=== PATIENT | female | born 1995 | race Caucasian/White ===

== ENCOUNTER → 2017-04-22 | Outpatient (CLI) | payer BC, OTHER ==
[~2017-04-22] VITALS: Ht 177.8 cm; Wt 73.2 kg
[~2017-04-22] MED LIST: AUGMENTIN 875875 MG PO; COLACE100 MG PO; ENSKYCE1 EACH PO; FLAGYL500 MG PO; HYDROCODONE-AP1 EAC6 PO; MEDROLDOSEPACK PO; MOBIC15 MG PO; NAPROSYN500 M1 PO; NOHOMEMEDICATIONS; SENNA S TABLET1 EACH PO
--- NOTE | ~2017-04-22 | HPC ---
[facility] [place] [address] PAIN MANAGEMENT CONSULTATION Name: MIGUELITO LEVINE Room #: REG JESSE ChavezLaureenArjun.#: [id number] Admission: 04/22/17 Attend Phys: Argenis Liu MD Discharge: Date of : 89 Report #: [id number] THIS REPORT FOR: //name// CC: Haylee Liu DATE OF SERVICE: 04/22/2017 PRIMARY CARE PHYSICIAN: Haylee Lombardi M.D. CHIEF COMPLAINT: Back and left leg pain. HISTORY OF PRESENT ILLNESS: The patient is a 21-year-old female who has been referred to the pain clinic for evaluation of back and leg pain. She has had pain and discomfort since 09/2016. She has noticed pain in the lower portion of her back and has experienced this multiple times during the course of day. Notes that the pain is worse when she gets in certain positions. She also on occasion has tingling, which radiates down into her left leg involving her toes when the pain is present. She does sometimes appreciate some weakness involving her left leg. She has undergone physical therapy for approximately 2 weeks in December. She did not notice that this provided any fci health. She states that her pain continued to be problematic in spite of that treatment. She was seen by an orthopedic nurse. After x-ray, she was told that a course of ibuprofen could be beneficial. She does not take any pain medications on a long-term basis at this juncture. Her back continues to be problematic daily. The most problematic time is when the pain is intense and radiates down into her left leg. She has tried heat, but has not noticed a significant improvement with this modality. Notes that the pain radiates down the middle of her back down into her left hip into her leg, particularly exacerbated by bending. Denies any bowel or bladder dysfunction. Describes it as brief, sharp and tender. Pain can average of 5 during the course of the day and 8 at its greatest level. ALLERGIES: TESOGEN. CURRENT MEDICATION REGIMEN: No current home medications, has used ProAir 2 puffs p.r.n. PAST MEDICAL HISTORY: Asthma. PAST SURGICAL HISTORY: Appendectomy in 08/2014. FAMILY HISTORY: Mother alive, hypertension, obesity and use of tobacco. Maternal grandmother alive with diabetes. Dad alive and healthy. She is an only child. Hypertension in her mother. [facility] [address] [place] [address] PAIN MANAGEMENT CONSULTATION Name: MIGUELITO LEVINE Room #: REG JESSE Luis Fernando#: [id number] Admission: 04/22/17 Attend Phys: Argenis Liu MD Discharge: Date of : 89 Report #: [id number] SOCIAL HISTORY: She worked at [employer]. She has never smoked. Twelfth grade education, graduated in 2013. Denies use of alcohol. Denies use of drugs. Denies being sexually active. Considering going to [employer] for an advanced degree. REVIEW OF SYSTEMS: Questionnaire generally good health. A 14-point review of systems all negative. PHYSICAL EXAMINATION: GENERAL: The patient is a well-developed, well-nourished white female. Appearance, appears her stated age, alert and oriented x 3. Affect is appropriate. HEENT: Normocephalic, atraumatic. Ear/hearing within normal limits. Eyes: Extraocular eye muscles intact. Sclerae is nonicteric. Nose is without discharge. Buccal membranes are moist, good dentition. NECK: Without adenopathy or bruits. LUNGS: Clear to auscultation. HEART: Regular rate and rhythm, normal S1, S2. ABDOMEN: Nontender. Bowel sounds present. MUSCULOSKELETAL: Normal alignment. No scoliosis, kyphosis or lordosis. The patient has a normal gait. Deep tendon reflexes are +2 in the upper biceps tendons trace at the brachioradialis and +1 for triceps. Sensation to cold pinprick and light touch are within normal limits. The patient has some soreness in the low back area in the L4-L5/L5-S1 paraspinous areas as well as some pain in the left greater trochanteric area. Deep tendon reflexes are +2 at the knees bilaterally and at the ankles. Generally, neurologic exam is within normal limits on the right lower extremity. The patient does have some slight decreased sensation with weakness in the left leg. LABORATORY DATA: 1. MRI of the lumbar spine dated 04/04/2017 reveals vertebral heights are maintained. No evidence of acute compression or malalignment. Disc Decussation and height reduction at L3-L4 with prominent Schmorl's in the superior endplate of L4 and reactive changes. Mild bilateral facet joint hypertrophy and ligamentum flavum thickening. Normal conus medullaris terminates at T12/L1. 2. L3-L4, mild broad-based disk bulge without significant acquired stenosis. 3. L3-L4 degenerative disk disease and Schmorl's node. PAIN CLINIC ASSESSMENT: 1. History of osteoarthritis, not applicable. History of rheumatoid arthritis, not applicable. 2. Height 5 feet 10 inches, weight 161 pounds, BMI is 23. 3. VITAL SIGNS: Blood pressure 101/78, pulse 78, respiratory rate 14 and room air saturation is 100. 4. Pain intensity of 2. 5. Fall risk, dizziness needs no help standing or walking. The patient has not [place] [id number] PAIN MANAGEMENT CONSULTATION Name: MIGUELITO LEVINE Room #: REG [facility].#: [id number] Admission: 04/22/17 Attend Phys: Argenis Liu MD Discharge: Date of : 89 Report #: [id number] fallen in the last 3 months. 6. The patient not on blood thinners. 7. History of hypertension, negative. History of opioid therapy greater than 6 weeks, negative. Risk assessment tool low risk with 0/3. 8. Functional assessment tool, . With regards to general activity, mood, walking ability, work, relationships with others, sleep, enjoyment of life. 9. Recreational drug use: Never. Tobacco use: Never. Alcohol use: None. IMPRESSION: A 21-year-old female with episodes of pain, which radiates down into the posterior portion of her back involving the left hip and down into her leg. MRI with changes showing L3-L4 broad base disk changes with smaller nodes and superior endplate reactive changes. Note also is made of bilateral facet joint hypertrophy and ligamentum flavum thickening. We discussed the treatment options with the patient. At this juncture, we will try the most conservative approach. The patient is not taking a nonsteroidal anti-inflammatory medication on a regular basis. We would start her on Meloxicam 15 mg 1 p.o. q.i.d. She will also try a Medrol Dosepak in the interim. Should her pain continue to be problematic and should she continue to have pain, which radiates down into her left leg, we will consider an epidural steroid injection. Risks and benefits of the current therapy of nonsteroidal anti-inflammatory medications and steroids were reviewed. The patient will call us if she has any complications. We would like to thank you for letting us participate in her care. We hope she continues to improve. Dosepak. I doubt that this will have any problems with increase. <ELECTRONICALLY SIGNED> By: Argenis Liu MD 05/04/17 [id number] Argenis Liu MD /[facility]
[2017-04-22 12:48] VITALS: BP 101/78
== END ==
LOC: PAIN 07:01
DX: M54.9 Dorsalgia, unspecified (principal); M79.605 Pain in left leg; J45.909 Unspecified asthma, uncomplicated; Z90.49 Acquired absence of other specified parts of digestive tract